=== PATIENT | male | born 1995 | race African-American/Black ===

== ENCOUNTER 2019-09-22 20:08 | Emergency (ER) | payer OTHER ==
[~2019-09-22] VITALS: Ht 172.7 cm; Wt 136.1 kg
[2019-09-22 20:57] LABS: Basophils # (auto) 0 uL; Basophils % (auto) 0.3 % (0.0-2.0); Eosinophils # (auto) 0 uL; Eosinophils % (auto) 0.5 % (0.0-7.0); Hematocrit 38.8 % (41.0-53.0); Mean Corpuscular Hemoglobin 28.1 pg (28.0-32.0); Mean Corpuscular Hgb Conc. 33.5 g/dL (32.0-36.0); Mean Corpuscular Volume 83.8 fL (80.0-100.0); Monocytes # (auto) 0.8 uL; Monocytes % (auto) 7.8 % (0.0-12.0); Neutrophils # (auto) 6.8 uL; Neutrophils % (auto) 70.4 % (37.0-80.0); Platelet Count (auto) 206 10^3/uL (140-450); Red Blood Cells 4.63 10^6/uL (4.5-5.90); Red Cell Distribution Width 14.2 % (11.8-14.3); White Blood Cell 9.6 10^3/uL (4.4-10.8)
[2019-09-22 21:12] LABS: INR 1.05 (0.9-1.15); Partial Thromboplastin Time 27.6 sec (23.64-32.05)
[2019-09-22 21:14] LABS: Albumin 3.7 g/dL (3.4-5.0); Anion Gap 11 (5-15); Blood Urea Nitrogen 8 mg/dL (7-18); Calcium 8.9 mg/dL (8.5-10.1); Carbon Dioxide 24 mmol/L (21-32); Chloride 106 mmol/L (98-107); Glucose 116 mg/dL (74-106); Potassium 3.4 mmol/L (3.5-5.1); Sodium 141 mmol/L (136-145)
[2019-09-22 21:16] LABS: Alanine Aminotransferase 25 U/L (16-61); Aspartate Aminotransferase 12 U/L (15-37); BUN/Creatinine Ratio 7.2; Blood Alcohol < 3.0 mg/dL (0-5); GFR African American 103 mL/min; GFR Non-African American 85 mL/min
[2019-09-22 21:19] LABS: Alkaline Phosphatase 122 U/L (45-117); Bilirubin, Total 0.2 mg/dL (0.2-1.0); Total Protein 8.3 g/dL (6.4-8.2)
[2019-09-22 21:20] LABS: Salicylate < 1.7 mg/dL (2.8-20.0)
[2019-09-22 21:21] LABS: Acetaminophen < 2.0 ug/mL (10-30)
[2019-09-22 23:03] LABS: Urine Bacteria NONE SEEN /hpf (None Seen); Urine Blood Negative /uL (Negative); Urine Mucus FEW (None Seen); Urine Specific Gravity 1.011 (1.001-1.035); Urine WBC 1 /hpf (0 - 3)
[2019-09-22 23:28] LABS: Alcohol, Urine < 3.0 mg/dL (0-5); Amphetamine Screen, Urine NEGATIVE (NEGATIVE); Barbiturate Scree,Urine NEGATIVE (NEGATIVE); Benzodiazephine Screen, Urine NEGATIVE (NEGATIVE); Cannabinoid Screen, Urine NEGATIVE (NEGATIVE); Cocaine Screen, Urine NEGATIVE (NEGATIVE); Opiate Scree,Urine NEGATIVE (NEGATIVE); Phencyclidine Screen, Urine NEGATIVE (NEGATIVE)
[2019-09-23] MEDS ORDERED: POTASSIUM EFFERVESENT TAB 25 MEQ PO ONE (07:15)
--- NOTE | 2019-09-23 23:44 | NUR ---
Patient refused vitals. The nurse has spoken to him and will make a note for the doctor. Addendum: 09/23/19 at 2356 by MYRNA Motta This note is a mistake. It is not for the correct patient.
[2019-09-23 23:50] VITALS: BP 114/63
[2019-09-25 02:53] VITALS: BP 103/53
== END 2019-09-25 03:10 | disposition short-term general hospital (02) ==
LOC: ER 20:14
DX: F20.9 Schizophrenia, unspecified (principal); F31.9 Bipolar disorder, unspecified
CPT/HCPCS: 36415; 80053; 80307; 80320; 80329; 81001; 82962; 85025; 85610; 85730